=== PATIENT | female | born 1995 | race Caucasian/White ===

== ENCOUNTER 2020-05-22 18:17 | Emergency (ER) | payer MEDICAID ==
[~2020-05-22] VITALS: Ht 180.3 cm; Wt 116.0 kg
[2020-05-22 18:22] VITALS: BP 115/84
== END 2020-05-22 19:58 | disposition home or self-care (01) ==
LOC: ER 18:39
DX: T19.2XXA Foreign body in vulva and vagina, initial encounter (principal); X58.XXXA Exposure to other specified factors, initial encounter; Y93.89 Activity, other specified; Y92.89 Other specified places as the place of occurrence of the external cause; Z71.89 Other specified counseling
CPT/HCPCS: 99281